=== PATIENT | female | born 1955 | race Caucasian/White ===

== ENCOUNTER 2017-03-13 11:33 | Emergency (ER) | payer BC ==
[2017-03-13] MEDS ORDERED: Sodium Chloride 0.9% 10 ML Syringe FLUSH PRN (11:38)
[2017-03-13 11:53] VITALS: BP 171/72
--- NOTE | 2017-03-13 11:56 | EDM.PDOC ---
ED HPI GENERAL MEDICAL PROBLEM - General Chief Complaint: Neurological Problem Stated Complaint: POSS STROKE Time Seen by Provider: 03/13/17 11:38 Source of Information: Reports: Patient History Limitations: Reports: No Limitations - History of Present Illness INITIAL COMMENTS - FREE TEXT/NARRATIVE: The patient presents with right sided headache and left arm numbness and left leg numbness. This started this morning at 7am. It occurred after she woke up. She was trying to go pick out hand some food at a caterer in town and she got lost. She had to have her come get her. She has some vision changes to the left side. It is blurry. She denies any weakness. She has no fever, chills, cough, congestion, runny nose, chest pain or shortness of breath. She has no history of strokes. She has a history of hypertension. Onset: Sudden Duration: Hour(s): (7am) Location: Reports: Head Quality: Reports: Ache Severity: Moderate Improves with: Reports: None Worsens with: Reports: None Context: Reports: Other (She was getting ready for the day) Associated Symptoms: Reports: Confusion (She got lost going to a caterer in town ), Headaches. Denies: Chest Pain, Fever/Chills, Nausea/Vomiting, Shortness of Breath Right Headache Pain Score (Numeric/FACES): 6 - Related Data Allergies Allergy/AdvReac Type Severity Reaction Status Date / Time No Known Allergies Allergy Verified 03/13/17 11:53 Home Meds: Home Meds Aspirin [Halfprin] 81 mg PO DAILY 10/16/14 [History] Biotin 10 mg PO DAILY 10/16/14 [History] Multivitamin [Daily Vitamin] 1 each PO DAILY 10/16/14 [History] [place]-3 Fatty Acids [[place]-3] 1,000 mg PO DAILY 10/16/14 [History] Pantoprazole [ProTONIX] 40 mg PO DAILY 10/16/14 [History] Social & Family History - Tobacco Use Smoking Status *Q: Current Every Day Smoker Years of Tobacco use: 30 Packs/Tins Daily: 0.2 Used Tobacco, but Quit: No Second Hand Smoke Exposure: Yes - Alcohol Use Days Per Week of Alcohol Use: 0 Number of Drinks Per Day: 0 Total Drinks Per Week: 0 - Recreational Drug Use Recreational Drug Use: No Drug Use in Last 12 Months: No ED ROS GENERAL - Review of Systems Review Of Systems: See Below Constitutional: Reports: No Symptoms HEENT: Reports: No Symptoms Respiratory: Reports: No Symptoms Cardiovascular: Reports: No Symptoms Endocrine: Reports: No Symptoms GI/Abdominal: Reports: No Symptoms : Reports: No Symptoms Musculoskeletal: Reports: No Symptoms Skin: Reports: No Symptoms Neurological: Reports: Headache (Right side), Numbness (Left arm and left leg) ED EXAM, NEURO - Physical Exam Exam: See Below Exam Limited By: No Limitations General Appearance: Alert, No Apparent Distress Ears: Normal External Exam Nose: Normal Inspection Head Exam: Atraumatic, Normocephalic Neck: Normal Inspection Respiratory/Chest: No Respiratory Distress, Lungs Clear, Normal Breath Sounds Cardiovascular: Regular Rate, Rhythm, No Edema, No Murmur GI/Abdominal: Soft, Non-Tender, No Organomegaly, No Mass Neurological: Alert, No Motor/Sensory Deficits, Oriented x 3 EKG INTERPRETATION EKG Date: 03/13/17 Time: 11:52 Rhythm: NSR Rate (Beats/Min): 63 [place]: Normal P-Wave: Present QRS: Normal ST-T: Normal QT: Normal EKG Interpretation Comments: Q waves in the inferior leads Course - Vital Signs Last Recorded V/S: Last Vital Signs Temp 96.7 F 03/13/17 11:40 Pulse 73 03/13/17 11:40 Resp 18 03/13/17 11:40 BP 171/72 H 03/13/17 11:40 Pulse Ox 100 03/13/17 11:40 - Orders/Labs/Meds Orders: Active Orders 24 hr Category Date Time Status Cardiac Monitoring [RC] . DIRECTED Care 03/13/17 11:38 Active EKG Documentation Completion [RC] STAT Care 03/13/17 11:39 Active Peripheral IV Care [RC] . DIRECTED Care 03/13/17 11:41 Active Sodium Chloride 0.9% [Saline Flush] Med 03/13/17 11:38 Active 10 ml FLUSH ASDIRECTED PRN Peripheral IV Insertion Adult [OM.PC] Stat Oth 03/13/17 11:38 Ordered Medication Orders Sodium Chloride (Saline Flush) 10 ml FLUSH ASDIRECTED PRN PRN Reason: Keep Vein Open Last Admin: 03/13/17 12:04 Dose: 10 ml Labs: Laboratory Tests 03/13/17 03/13/17 03/13/17 Range/Units 11:50 11:50 11:50 WBC 11.10 H (3.98-10.04) K/mm3 RBC 4.91 (3.98-5.22) M/mm3 Hgb 12.0 (11.2-15.7) gm/L Hct 38.5 (34.1-44.9) % MCV 78.4 L (79.4-94.8) fl MCH 24.4 L (25.6-32.2) pg MCHC 31.2 L (32.2-35.5) g/dl RDW Std Deviation 49.8 H (36.4-46.3) fL Plt Count 416 H (182-369) K/mm3 MPV 9.3 L (9.4-12.3) fl Neut % (Auto) 81.7 H (34.0-71.1) % Lymph % (Auto) 13.3 L (19.3-51.7) % [place] % (Auto) 3.9 L (4.7-12.5) % Eos % (Auto) 0.1 L (0.7-5.8) Baso % (Auto) 0.8 (0.1-1.2) % Neut # (Auto) 9.07 H (1.56-6.13) K/mm3 Lymph # (Auto) 1.48 (1.18-3.74) K/mm3 [place] # (Auto) 0.43 H (0.24-0.36) K/mm3 Eos # (Auto) 0.01 L (0.04-0.36) K/mm3 Baso # (Auto) 0.09 H (0.01-0.08) K/mm3 PT 10.4 (8.0-13.0) SECONDS INR 0.96 APTT 27 (22-36) SECONDS Sodium 140 (136-145) mEq/L Potassium 3.5 (3.5-5.1) mEq/L Chloride 105 (98-107) mEq/L Carbon Dioxide 24 (21-32) mEq/L Anion Gap 14.5 (5-15) BUN 13 (7-18) mg/dL Creatinine 1.1 H (0.55-1.02) mg/dL Est Cr Clr Drug Dosing 45.20 mL/min Estimated GFR (MDRD) 50 (>60) mL/min BUN/Creatinine Ratio 11.8 L (14-18) Glucose 161 H (80-115) mg/dL POC Glucose (80-115) mg/dL Calcium 9.1 (8.5-10.1) mg/dL Total Bilirubin 0.3 (0.2-1.0) mg/dL AST 21 (15-37) U/L ALT 22 (14-59) U/L Alkaline Phosphatase 122 H (46-116) U/L Troponin I < 0.017 (0.00-0.056) ng/mL Total Protein 8.1 (6.4-8.2) g/dl Albumin 3.3 L (3.4-5.0) g/dl Globulin 4.8 gm/dL Albumin/Globulin Ratio 0.7 L (1-2) 03/13/17 Range/Units 11:55 WBC (3.98-10.04) K/mm3 RBC (3.98-5.22) M/mm3 Hgb (11.2-15.7) gm/L Hct (34.1-44.9) % MCV (79.4-94.8) fl MCH (25.6-32.2) pg MCHC (32.2-35.5) g/dl RDW Std Deviation (36.4-46.3) fL Plt Count (182-369) K/mm3 MPV (9.4-12.3) fl Neut % (Auto) (34.0-71.1) % Lymph % (Auto) (19.3-51.7) % [place] % (Auto) (4.7-12.5) % Eos % (Auto) (0.7-5.8) Baso % (Auto) (0.1-1.2) % Neut # (Auto) (1.56-6.13) K/mm3 Lymph # (Auto) (1.18-3.74) K/mm3 [place] # (Auto) (0.24-0.36) K/mm3 Eos # (Auto) (0.04-0.36) K/mm3 Baso # (Auto) (0.01-0.08) K/mm3 PT (8.0-13.0) SECONDS INR APTT (22-36) SECONDS Sodium (136-145) mEq/L Potassium (3.5-5.1) mEq/L Chloride (98-107) mEq/L Carbon Dioxide (21-32) mEq/L Anion Gap (5-15) BUN (7-18) mg/dL Creatinine (0.55-1.02) mg/dL Est Cr Clr Drug Dosing mL/min Estimated GFR (MDRD) (>60) mL/min BUN/Creatinine Ratio (14-18) Glucose (80-115) mg/dL POC Glucose 174 H (80-115) mg/dL Calcium (8.5-10.1) mg/dL Total Bilirubin (0.2-1.0) mg/dL AST (15-37) U/L ALT (14-59) U/L Alkaline Phosphatase (46-116) U/L Troponin I (0.00-0.056) ng/mL Total Protein (6.4-8.2) g/dl Albumin (3.4-5.0) g/dl Globulin gm/dL Albumin/Globulin Ratio (1-2) Meds: Medications Generic Name Dose Route Start Last Admin Trade Name Freq PRN Reason Stop Dose Admin Sodium Chloride 10 ml 03/13/17 11:38 03/13/17 12:04 Saline Flush FLUSH 10 ml ASDIRECTED PRN Administration Keep Vein Open Discontinued Medications Generic Name Dose Route Start Last Admin Trade Name Freq PRN Reason Stop Dose Admin Aspirin 324 mg 03/13/17 13:06 Aspirin PO 03/13/17 13:07 ONETIME ONE - Re-Assessments/Exams Free Text/Narrative Re-Assessment/Exam: 03/13/17 12:38 A stoke alert was called and the patient was last known well at 7am. I went in to the room right away. The patient was anxious and she was complaining of a headache on the right side of her head and left arm and leg numbness. She has no weakness on that side. Her head CT shows nothing acute. Her EKG shows a NSR with some Q waves in the inferior leads. Her CBC looks good. Her creatinine is 1.1. Her blood sugar is 161. 03/13/17 13:09 She is feeling better. Her vision is better and she has no numbness on the left side of her body. She still has a headache. I have ordered aspirin 324mg. I cannot get an MRI done today. I feel she needs to be admitted where they have neurology and MRI capabilities. 03/13/17 13:20 I talked with the neurologist at [facility] in [place] Dr Snider and he agreed she needed to be admitted. I also talked with Dr Wise the hospitalist and he agreed to the transfer. Departure - Departure Time of Disposition: 13:25 Disposition: DC/Tfer to Acute Hospital 02 Condition: Fair Clinical Impression: TIA (transient ischemic attack) Qualifiers: Transient cerebral ischemia type: unspecified Qualified Code(s): G45.9 - Transient cerebral ischemic attack, unspecified Headache Qualifiers: Headache type: unspecified Headache chronicity pattern: unspecified pattern Intractability: not intractable Qualified Code(s): R51 - Headache - Discharge Information Referrals: PCP,Unobtain [Ordering Only Provider] - Forms: ED Department Discharge - My Orders Last 24 Hours: My Active Orders 03/13/17 11:38 Cardiac Monitoring [RC] . DIRECTED Sodium Chloride 0.9% [Saline Flush] 10 ml FLUSH ASDIRECTED PRN Peripheral IV Insertion Adult [OM.PC] Stat 03/13/17 11:39 EKG Documentation Completion [RC] STAT 03/13/17 11:41 Peripheral IV Care [RC] . DIRECTED - Assessment/Plan Last 24 Hours: My Active Orders 03/13/17 11:38 Cardiac Monitoring [RC] . DIRECTED Sodium Chloride 0.9% [Saline Flush] 10 ml FLUSH ASDIRECTED PRN Peripheral IV Insertion Adult [OM.PC] Stat 03/13/17 11:39 EKG Documentation Completion [RC] STAT 03/13/17 11:41 Peripheral IV Care [RC] . DIRECTED
--- NOTE | 2017-03-13 11:57 | CT ---
Head CT Technique: Multiple axial sections through the brain were obtained. Intravenous contrast was not utilized. Comparison: No previous intracranial imaging. Findings: Ventricles along the basal cisterns and sulci over the convexities are within normal limits for the patient's age. No abnormal parenchymal densities are seen. No evidence of intracranial hemorrhage. No midline shift or mass effect is seen. Bone window settings were reviewed which shows no discrete calvarial abnormality. Visualized sinuses are clear. Impression: 1. Nothing acute is appreciated on noncontrast head CT exam. Diagnostic code #1
[2017-03-13] MEDS ORDERED: Aspirin 81 MG Tab.Chew PO ONE (13:06)
[2017-03-13] MEDS ORDERED: HYDROmorphone 0.5 MG/0.5 ML Syringe IVPUSH ONE (13:32)
== END 2017-03-13 14:25 ==
LOC: JD.ED 11:33
DX: G45.9 Transient cerebral ischemic attack, unspecified (principal); F17.210 Nicotine dependence, cigarettes, uncomplicated; Z79.82 Long term (current) use of aspirin
CPT/HCPCS: 36415; 70450; 80053; 82962; 84484; 85025; 85610; 85730; 93005; 96374; 99285; A9270; J1170; J7050

== ENCOUNTER 2022-11-19 07:40 | Day surgery (SDC) | payer MEDICARE ==
[~2022-11-19 07:40] MED LIST: Lactated Ringers 1,000 ML IV SCH; Lidocaine 1%/Sod Bicarbonate in NS 8.4% 1 ML Syringe IDERM PRN; Sodium Chloride 0.9% 10 ML Syringe FLUSH PRN; Sodium Chloride 0.9% 10 ML Syringe FLUSH SCH
[2022-11-19 08:28] LABS: HEMATOCRIT 27.5 % (34.1-44.9); MEAN CORPUSCULAR HEMOGLOBIN 28.3 pg (25.6-32.2); MEAN CORPUSCULAR HGB CONC 30.5 g/dl (32.2-35.5); MEAN CORPUSCULAR VOLUME 92.6 fl (79.4-94.8); MEAN PLATELET VOLUME 9.3 fl (9.4-12.3); RED BLOOD CELL COUNT 2.97 M/mm3 (3.98-5.22); WHITE BLOOD CELL COUNT,WBC 7.44 K/mm3 (3.98-10.04)
[2022-11-19] MEDS ORDERED: fentaNYL 100 MCG/2 ML SDV ONE (08:28)
[2022-11-19] MEDS ORDERED: Lidocaine 1% 2 ML ONE (08:28)
[2022-11-19] MEDS ORDERED: Midazolam 1 MG/ML 2 ML SDV ONE (08:29)
[2022-11-19] MEDS ORDERED: Propofol 200 MG/20 ML SDV ONE ×2 (08:29→10:03)
[2022-11-19 08:43] LABS: HEMOGLOBIN 8.4 gm/dl (11.2-15.7); PLATELET COUNT,PLT 547 K/mm3 (182-369)
[2022-11-19 08:55] LABS: A/G RATIO 0.5 (1-2); ALBUMIN 2.1 g/dl (3.4-5.0); ANION GAP 15.2 (5-15); BILIRUBIN TOTAL 0.4 mg/dL (0.2-1.0); BUN/CREATININE RATIO 13.1 (14-18); CALCIUM 8.2 mg/dL (8.5-10.1); CREATININE 1.3 mg/dL (0.55-1.02); POTASSIUM,K 4.2 mEq/L (3.5-5.1); PROTEIN TOTAL,TP 6.5 g/dl (6.4-8.2)
[2022-11-19 09:21] LABS: EST CRCL DRUG DOSING (CG) 35.27 mL/min
[2022-11-19 11:28] VITALS: BP 118/66; PULSE 71
== END 2022-11-19 11:16 | disposition home or self-care (01) ==
LOC: JD.SDS 07:40
PROVIDERS: ATTEND Surgery
DX: D12.3 Benign neoplasm of transverse colon (principal); D12.8 Benign neoplasm of rectum; K57.30 Diverticulosis of large intestine without perforation or abscess without bleeding; K31.89 Other diseases of stomach and duodenum; K64.8 Other hemorrhoids; D50.9 Iron deficiency anemia, unspecified; K92.1 Melena; N18.30 Chronic kidney disease, stage 3 unspecified; I12.9 Hypertensive chronic kidney disease with stage 1 through stage 4 chronic kidney disease, or unspecified chronic kidney disease; E78.00 Pure hypercholesterolemia, unspecified; I25.10 Atherosclerotic heart disease of native coronary artery without angina pectoris; I25.2 Old myocardial infarction; E11.9 Type 2 diabetes mellitus without complications; E66.01 Morbid (severe) obesity due to excess calories; F33.1 Major depressive disorder, recurrent, moderate; Z98.84 Bariatric surgery status; Z79.899 Other long term (current) drug therapy; Z79.84 Long term (current) use of oral hypoglycemic drugs; Z79.02 Long term (current) use of antithrombotics/antiplatelets; Z87.891 Personal history of nicotine dependence; Z90.49 Acquired absence of other specified parts of digestive tract
CPT/HCPCS: 36415; 43239; 45380; 45385; 80053; 85027; J2250; J2704; J3010; J7120; J3490